=== PATIENT | male | born 1990 | race Caucasian/White ===

== ENCOUNTER 2022-07-04 10:54 | Emergency (ER) | payer OTHER, SELFPAY ==
--- NOTE | 2022-07-04 11:02 | ED.BACK ---
HPI - Back Pain/Injury General Chief Complaint: Back Pain/Injury Stated Complaint: muscle spasm Time Seen by Provider: 07/04/22 11:02 Source: patient and RN notes reviewed History of Present Illness HPI Narrative: Patient is a 32-year-old male who presents to urgent care with complaints of low back pain and spasms. Patient states that he has had a history of back spasms. States that it started yesterday and was worse this morning. Denies any activity out of the ordinary however he was helping his parents on pack yesterday. Patient has been taking ibuprofen for the pain. Denies any radiation of the pain. No other acute complaints. No acute distress noted. Patient aware of the plan of care. Some parts of this dictation were generated by voice recognition software and may contain typographical and/or grammatical inaccuracies. Related Data Allergies Allergy/AdvReac Type Severity Reaction Status Date / Time amoxicillin Allergy Rash Verified 07/04/22 11:22 Review of Systems Review of Systems: CONSTITUTIONAL: Denies fever, chills, or sweats. EYES: Denies visual changes, redness, or discharge. ENT: Denies rhinorrhea, congestion, sore throat, or otalgia. CARDIOVASCULAR: Denies chest pain, palpitations, or edema. RESPIRATORY: Denies cough or dyspnea. GASTROINTESTINAL: Denies abdominal pain, nausea, vomiting, or diarrhea. GENITOURINARY: Denies dysuria or hematuria. SKIN: Denies rash or itching. MUSCULOSKELETAL: Reports of low back pain and spasms without radiation NEUROLOGIC: Denies headache, numbness, or weakness. All other systems reviewed are negative, except as documented in HPI. PMFSH Comments At the time of my signature, I reviewed and agree with the nursing past medical, surgical, social, and family history. There is no relevant family history pertinent to the patient complaint. Exam Narrative: GENERAL: This is a well-nourished, well-developed patient, in no apparent distress. HEAD: normocephalic, atraumatic. EYES: PERRL. Sclera clear/white. Vision is grossly intact. EARS: External ears normal NOSE: External nose normal with no obvious nasal discharge, nares without redness, no rhinorrhea. THROAT: Mucous membranes moist NECK: Neck supple SKIN: warm, intact with no suspicious lesions or rash, good texture and turgor. NEURO: awake, alert, and oriented to person, place and time. There were no obvious focal neurologic abnormalities. EXTREMITIES: No clubbing, cyanosis, or edema. BACK: Negative bilateral SLE with mild diffuse lumbar tenderness. Pain exacerbated with bending motion or sitting to standing Course Course Level of Care: Express Care Visit Vital Signs Vital signs: Vital Signs Temperature 98.3 F 07/04/22 11:43 Pulse Rate 99 07/04/22 11:43 Respiratory Rate 16 07/04/22 11:43 Blood Pressure 134/79 07/04/22 11:43 Pulse Oximetry 99 07/04/22 11:43 Temperature 98.3 F 07/04/22 11:43 Pulse Rate 99 07/04/22 11:43 Respiratory Rate 16 07/04/22 11:43 Blood Pressure 134/79 07/04/22 11:43 Pulse Oximetry 99 07/04/22 11:43 Reviewed MDM - Back Pain/Injury MDM Narrative Medical decision making narrative: Advised patient to complete the oral steroid regimen as prescribed. Use the Flexeril as needed as a muscle relaxant. Be aware that the Flexeril will make you drowsy and would not advise operating heavy machinery, driving or working while on the medication. Continue ice/heat as needed for discomfort. Avoid any strenuous activities such as heavy lifting/pushing/pulling. Use the ibuprofen as needed for pain or discomfort. If he develops any increase in pain associated with loss of bowel or bladder-go to the emergency room. Follow-up with your PCP within 2-5 days or for worsening symptoms or failure to improve. Differential Diagnosis Differential diagnosis: Likely lumbar radiculopathy, sciatica, strain of lumbar region, renal colic, pyelonephritis and thoracic back pain Critical
[2022-07-04 11:43] VITALS: BP 134/79; PULSE 99; RESP 16; TEMP 36.8; O2SAT 99
== END 2022-07-04 11:46 | disposition home or self-care (01) ==
PROVIDERS: Emergency Provider Nurse Practitioner Family
DX: S39.012A Strain of muscle, fascia and tendon of lower back, initial encounter (principal); X58.XXXA Exposure to other specified factors, initial encounter
CPT/HCPCS: 99213; G0463

== ENCOUNTER 2022-07-07 09:19 | Emergency (ER) | payer OTHER, SELFPAY ==
--- NOTE | ~2022-07-07 | XR_ITS ---
EXAMINATION: XR lumbar spine 2-3V DATE: 07/07/2022 12:23 INDICATION: Low back pain TECHNIQUE: Anteroposterior and lateral views of the lumbar spine, and cone-down lateral view of the l umbosacral junction were obtained. COMPARISON: None. FINDINGS: There are 2 mm of retrolisthesis of L5 on S1. There is mild loss of intervertebral disc spa ce height at L5-S1. The vertebral body heights are maintained. There is no fracture. IMPRESSION: 1. Mild lumbar spondylosis without acute abnormality. Reviewed, dictated and finalized at location B. 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
[2022-07-07 09:24] VITALS: BP 131/87; PULSE 87; RESP 18; TEMP 36.7; O2SAT 98
--- NOTE | 2022-07-07 11:48 | ED.BACK ---
HPI - Back Pain/Injury General Chief Complaint: Back Pain/Injury Stated Complaint: back spasms Time Seen by Provider: 07/07/22 11:24 Source: patient Mode of arrival: EMS Limitations: no limitations History of Present Illness HPI Narrative: This is a 32-year-old male that presents to the emergency department for back pain ongoing over the last 4 days. No recent injury or trauma. Reports muscle spasms in the back. He was evaluated at urgent care for this and started on a steroid taper. Also given cyclobenzaprine. He has been taking these medications with some relief. Denies fever, abdominal pain, vomiting, dysuria, hematuria, saddle anesthesia, or bowel/bladder incontinence Related Data Allergies Allergy/AdvReac Type Severity Reaction Status Date / Time amoxicillin Allergy Rash Verified 07/07/22 11:19 Review of Systems Review of Systems: CONSTITUTIONAL: Denies fever GASTROINTESTINAL: Denies abdominal pain, nausea, vomiting GENITOURINARY: Denies dysuria or hematuria. SKIN: Denies rash MUSCULOSKELETAL: Reports back pain, joint pain, and myalgia. NEUROLOGIC: Denies numbness, or weakness. All systems reviewed & are unremarkable except as noted in HPI and below PMFSH Past Medical History Medical History (Updated 07/07/22 @ 13:18 by Evelyn Vallejo PA-C) No active medical problems Social History Social History (Updated 07/07/22 @ 11:49 by Evelyn Vallejo PA-C) Smoking status: Never smoker Substance use: never Exam Narrative: GENERAL: Well-appearing, well-nourished, and in no acute distress. HEAD: Normocephalic, atraumatic. EYES: EOMI. CHEST: Clear to auscultation. No respiratory distress. No wheezes rales or rhonchi HEART: Regular rate and rhythm. No murmur heard. Normal peripheral pulses. ABDOMEN: Soft, nontender, nondistended, normal active bowel sounds. BACK: No midline spinal tenderness EXTREMITIES: Normal range of motion. No edema. Strength equal in bilateral lower extremities (5/5). Normal DP pulses SKIN: Warm, dry, no rash. NEURO: No focal deficits. Alert and oriented x3. PSYCH: Normal mood and affect Course Course Emergency Course: Patient and family updated on work-up and agree with plan of care. Patient resting comfortably Vital Signs Vital signs: Vital Signs Temperature 98.1 F 07/07/22 09:24 Pulse Rate 87 07/07/22 09:24 Respiratory Rate 18 07/07/22 09:24 Blood Pressure 131/87 07/07/22 09:24 Pulse Oximetry 98 07/07/22 09:24 Oxygen Delivery Room Air 07/07/22 09:24 Temperature 98.1 F 07/07/22 09:24 Pulse Rate 87 07/07/22 09:24 Respiratory Rate 18 07/07/22 09:24 Blood Pressure 131/87 07/07/22 09:24 Pulse Oximetry 98 07/07/22 09:24 Oxygen Delivery Room Air 07/07/22 09:24 MDM - Back Pain/Injury MDM Narrative Medical decision making narrative: Patient presents to the emergency department for low back pain ongoing over the last 4 days. No recent injury or trauma. Patient is neurovascularly intact. Denies saddle anesthesia, or bowel/bladder incontinence. Lumbar spine x-ray shows mild lumbar spondylosis without acute findings. Patient instructed to continue to rest, take Tylenol or anti-inflammatories as needed for pain as well as muscle relaxer as needed for pain. He is to follow-up with primary care provider. He was given warnings to return to the ER Differential Diagnosis Differential diagnosis: Likely sciatica and strain of lumbar region Imaging Data Radiologist's impression: ITS Impressions Lumbar Spine X-Ray 07/07/22 12:29 IMPRESSION: 1. Mild lumbar spondylosis without acute abnormality. Critical Care Time Critical Care Time Critical Care Time: No Discharge Plan Discharge Clinical Impression: Low back pain Qualifiers: Chronicity: acute Back pain laterality: midline Sciatica presence: without sciatica Qualified Code(s): M54.50 - Low back pain, unspecified Patient Disposition: Home, Self-Care Cond
[2022-07-07] MEDS: diazePAM INJ (*CRX) 10 MG/2 ML SYRINGE 5 MG IM (11:54)
[2022-07-07] MEDS: ACETAMINOPHEN 500 MG TABLET 1000 MG PO (11:54)
[2022-07-07 13:30] VITALS: BP 130/86; PULSE 82; RESP 16; O2SAT 99
== END 2022-07-07 13:40 | disposition home or self-care (01) ==
PROVIDERS: Emergency Provider Physician Assistant
DX: M54.50 Low back pain, unspecified (principal)
CPT/HCPCS: 72100; 96372; 99284; A9270; J1100; J3360